=== PATIENT | male | born 1945 | race Caucasian/White ===

== ENCOUNTER → 2016-12-02 | Outpatient (CLI) | payer MEDICARE, OTHER ==
[~2016-12-02] MED LIST: ALBUTEROL0.63 MG/3; AMITIZA8 MCG PO; CEPACOL SORE T1 EAC1; COLACE100 MG PO; DULCOLAX10 MG R; EXELON1.5 MG PO; FLOMAX0.4 MG PO; GLUCOSE4 GM PO; LEVEMIR100 UNIT/1 SUB-Q; MAALOX LIQ UNIT30 ML PO; MELATONIN1 MG; MILK OF MA400 MG/5 M PO; MIRALAX119 GM; MIRAPEX1 MG PO; NOVOLOG100 UNIT/1; PROAMATINE5 MG PO; PROTONIX40 MG PO; RITALIN 5MG5 MG PO; SINEMET 25-1001 EACH PO; TYLENOL325 MG PO; ZOFRAN4 MG PO
== END | disposition disaster alternative care site (69) ==
LOC: GAMB 12:47
DX: R53.1 Weakness (principal); R40.20 Unspecified coma
CPT/HCPCS: A0422; A0425; A0427; J7030